=== PATIENT | male | born 1995 | race African-American/Black ===

== ENCOUNTER 2017-11-09 19:01 | Emergency (ER) | payer SELFPAY ==
[~2017-11-09] VITALS: Ht 188 cm; Wt 70.3 kg
[2017-11-09] MEDS ORDERED: NKM (19:20)
[2017-11-09 19:27] VITALS: BP 131/82
[2017-11-09] MEDS ORDERED: Mylanta II UD 30ml ORAL ONE (19:30)
[2017-11-09] MEDS ORDERED: Dicyclomine HCl 10mg/5ml oral soln ORAL ONE (19:30)
[2017-11-09] MEDS ORDERED: Lidocaine 2% Visc 15ml soln ORAL ONE (19:30)
[2017-11-09] MEDS ORDERED: MULTIVITAMINS1 EAC2 ORAL (20:01)
[2017-11-09] MEDS ORDERED: IBUPROFEN600 MG ORAL (20:01)
[2017-11-09 20:12] VITALS: BP 131/82
--- NOTE | 2017-11-09 22:20 | Emergency Room Report ---
History of Present Illness General Chief Complaint: Abdominal Pain Source: Patient Present Illness HPI The patient is a 22-year-old male who denies any medical history presenting for abdominal pain for the past 2 months. Pain is an intermittent 8/10 "quivering" of the right upper quadrant as well as mid upper abdomen. Pain worse with movement such as twisting. He has not tried any medications at. He denies any other symptoms including nausea, vomiting, fever, chills, diarrhea, constipation Allergies: Coded Allergies: No Known Allergies (Unverified , 11/09/17) Patient History Past Medical History: see triage record Pertinent Family History: none Reviewed Nursing Documentation: PMH: Agreed, PSxH: Agreed Nursing Documentation-PMH Past Medical History: No Stated History Review of Systems All Other Systems: negative except mentioned in HPI Physical Exam Vital Signs Date Time Temp Pulse Resp B/P (MAP) Pulse Ox O2 Delivery O2 Flow Rate FiO2 11/09/17 19:13 98.2 78 16 131/82 99 Room Air Sp02 EP Interpretation: reviewed, normal General Appearance: no apparent distress, alert, GCS 15, non-toxic Head: normocephalic, atraumatic Eyes: bilateral eye normal inspection, bilateral eye PERRL ENT: hearing grossly normal, normal pharynx, no angioedema, normal voice Neck: full range of motion, supple/symm/no masses Respiratory: chest non-tender, lungs clear, normal breath sounds, speaking full sentences Gastrointestinal: normal bowel sounds, soft, non-distended, tenderness - epigastric Rectal: deferred Genitourinary: normal inspection, no CVA tenderness Musculoskeletal: back normal, gait/station normal, normal range of motion, non- tender Neurologic: alert, oriented x3, responsive, motor strength/tone normal, sensory intact, speech normal Psychiatric: judgement/insight normal, memory normal, mood/affect normal, no suicidal/homicidal ideation Skin: normal color, no rash, warm/dry, well hydrated Medical Decision Making PA Attestation Dr. Woodard is my supervising physician. Patient management was discussed with my supervising physician Diagnostic Impression: Primary Impression: Abdominal pain Qualified Codes: R10.9 - Unspecified abdominal pain ER Course The patient is a 22-year-old male who denies any medical history presenting for abdominal pain for the past 2 months Differential diagnoses considered but not limited to: GERD, gastritis, gastric ulcer, muscle strain, gastroenteritis Physical exam: Vitals within normal limits. No apparent distress RRR. Lungs are clear to auscultation bilaterally Abdomen is soft. Normal bowel sounds. Nondistended. There is tenderness to palpation over epigastric region only The patient is given a GI cocktail and feels better Patient discharged with a prescription for motrin and multivitamin as HPI is likely consistent with muscle twitching. ER precautions given Last Vital Signs Date Time Temp Pulse Resp B/P (MAP) Pulse Ox O2 Delivery O2 Flow Rate FiO2 11/09/17 20:12 98.2 78 16 131/82 99 Room Air Status: improved Disposition: HOME, SELF-CARE Condition: Improved Scripts Multivitamins* (MULTIVITAMINS*) 1 Each Tablet 1 TAB ORAL DAILY, #30 TAB 0 Refills Prov: REINALDO MOBLEY 11/09/17 Ibuprofen* (MOTRIN*) 600 Mg Tablet 600 MG ORAL Q8H Y for For Pain, #30 TAB 0 Refills Prov: REINALDO MOBLEY 11/09/17 Referrals: NOT CHOSEN [facility]/MD,REFERRING (PCP) Patient Instructions: Abdominal Pain, Adult Additional Instructions: I discussed my findings with the patient. All questions and concerns have been answered. Treatment and medication compliance have been addressed. I advised the patient that they need to follow up with PMD in 3-5 days. Return to ED if symptoms worsen, new symptoms arise, or if needed for any reason. Patient verbalized understanding of discharge instructions. REINALDO MOBLEY Nov 09, 2017 22:20
== END 2017-11-09 20:12 | disposition home or self-care (01) ==
LOC: EMR 19:30
DX: R10.9 Unspecified abdominal pain (principal)
CPT/HCPCS: 99283